=== PATIENT | male | born 1965 | race Caucasian/White ===

== ENCOUNTER 2024-10-11 06:21 | Day surgery (SDC) | payer OTHER, SELFPAY ==
[2024-10-08 13:05] VITALS: BMI 34.5
[2024-10-11] VITALS (16 sets, daily range): BP systolic 124–175; BP diastolic 73–105; BMI 34.5
[2024-10-11] MEDS: TYLENOL 650 MG PO ×2 (19:27→23:07)
--- NOTE | 2024-10-11 19:37 | PTCARENOTE ---
Sent message to Dr. Gaffney about pt, in regards to voiding. Pt walking around, drinking water
--- NOTE | 2024-10-11 19:50 | W.PN.UPDATE ---
Update Note
Progress Note Update
Patient underwent hemorrhoidectomy (3 quadrant) under spinal plus MAC and local earlier today and I was informed that he may be retaining urine (800 cc on bladder scan and only passed 100 cc). He lives in [place] and pharmacies are closing
soon. I recommended staying overnight for observation with status of 'post surgical recovery'. If continues to retain, may need straight cath vs jarrett. Will order pain control as well. Hopefully home in am.
[2024-10-11] MEDS: ROXICODONE 10 MG PO (20:07)
[2024-10-11] MEDS: PEPCID 40 MG PO (22:16)
[2024-10-11] MEDS: MOTRIN 400 MG PO (23:07)
[2024-10-12] MEDS: ROXICODONE 10 MG PO (00:16)
--- NOTE | 2024-10-12 00:42 | PTCARENOTE ---
Pt arrived 2119 via stretcher from PACU. Pt was able to ambulate to bed. Coreas draining yellow urine. VSS. oriented to room and call hall. bed in lowest position and locked. informed on plan of care. at bedside.
[2024-10-12 00:44] VITALS: BMI 34.8
[2024-10-12 03:55] VITALS: BP 134/77
[2024-10-12] MEDS: TYLENOL 650 MG PO ×3 (04:05→11:10)
[2024-10-12] MEDS: ROXICODONE 5 MG PO (04:05)
[2024-10-12] MEDS: MOTRIN 400 MG PO ×2 (05:08→11:10)
[2024-10-12 06:00] VITALS: BMI 34.5
[2024-10-12 06:55] VITALS: BP 133/79
[2024-10-12] MEDS: PROTONIX 40 MG PO (09:32)
[2024-10-12] MEDS: ORETIC 12.5 MG PO (09:32)
[2024-10-12] MEDS: METAMUCIL, KONSYL 1 PACKET PO (09:32)
[2024-10-12] MEDS: ZESTRIL 10 MG PO (09:32)
--- NOTE | 2024-10-12 09:55 | W.PN.CRS1 ---
Today's Communication / Plan
-
DC Coreas
Postvoid residual
Discharge later today
Assessment/Plan
-
Postop day #1 hemorrhoidectomy (3 quadrant)
-Vitals normal
-Discontinue Coreas
-Postvoid residual after Coreas removal
-Discharge later today after void trial versus Coreas reinsertion and discharge
-Continue stool softeners, pain medication, and sitz bath's
-Discussed with patient and at bedside
Subjective Data
Procedure
10/11/2024- hemorrhoidectomy (3 quadrant)
Subjective Data
Date of Service: October 12, 2024
Patient states he feels well. His pain is 'up-and-down'. The Coreas has remained in place. He has passed gas.
Objective Data
-
Vital Signs
Temp Pulse Resp BP Pulse Ox
97.7 F 84 18 133/79 98
10/12/24 06:55 10/12/24 06:55 10/12/24 06:55 10/12/24 06:55 10/12/24 06:55
Intake & Output
10/11/24 10/12/24 10/13/24
06:59 06:59 06:59
Output Total 1450 / 1450 350 / 350
Balance -1450 / -1450 -350 / -350
Output:
Urine, Coreas 1450 / 1450 350 / 350
Physical Exam
-
General: No Acute Distress and AOx3
Abdomen: Soft, Non Distended and Non Tender
Wound: Dressing Changed
Incision: Clear, Dry, Intact
--- NOTE | 2024-10-12 10:14 | CM ---
Patient seen at bedside with
IA completed
IMM n/a
Coreas removed
Lives in a 2 story home with , 5 steps to enter, flight to second floor
PLOF: Independent, no AD
DME: CPAP, cane (his 's)
Denies hh/outpatient rehab in past for shoulder
Denies insecurities
PLAN: home, no needs anticipated
to transport
[2024-10-12] MEDS: MYLICON 80 MG PO (11:10)
[2024-10-12 11:36] VITALS: BP 131/77
== END 2024-10-12 14:28 | disposition home or self-care (01) ==
LOC: SDS 06:21
PROVIDERS: ATTENDING PHYSICIAN Surgery; FAMILY PHYSICIAN Family Medicine
DX: K64.3 Fourth degree hemorrhoids (principal); K64.4 Residual hemorrhoidal skin tags
CPT/HCPCS: 46946; 88304; 36415; 93005; 94660